=== PATIENT | female | born 1970 | race American Indian/Alaskan Native ===

== ENCOUNTER 2024-08-26 17:24 | Emergency (ER) | payer SELFPAY ==
[2024-08-26] MEDS: Lidocaine 2% 20 ML MDV ONE (19:53)
== END 2024-08-26 19:50 | disposition home or self-care (01) ==
LOC: DL.ED 17:24
DX: G43.809 Other migraine, not intractable, without status migrainosus (principal); Z88.1 Allergy status to other antibiotic agents; Z88.8 Allergy status to other drugs, medicaments and biological substances; Z90.49 Acquired absence of other specified parts of digestive tract
CPT/HCPCS: 64400; 99283-25; J3490